=== PATIENT | male | born 1950 ===

== ENCOUNTER 2019-01-20 13:30 | Emergency (ER) | payer MEDICARE, MEDICAID ==
[2019-01-20 13:31] VITALS: PULSE 84
[2019-01-20 13:38] VITALS: BMI 32.4
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
[2019-01-20 14:24] LABS: URINE BACTERIA RARE (<OCC); URINE BILIRUBIN NEGATIVE (NEGATIVE); URINE BLOOD NEGATIVE (NEGATIVE); URINE CLARITY CLEAR (Clear); URINE COLOR STRAW (YELLOW); URINE GLUCOSE (UA) NEG (NEGATIVE); URINE LEUKOCYTE ESTERASE NEG Leu/uL (Negative); URINE PROTEIN NEGATIVE (NEGATIVE); URINE UROBILINOGEN 0.2-1.0 mg/dL (0.2-1.0)
[2019-01-20 14:40] LABS: BARBITURATES, UR NEGATIVE (NEGATIVE); BENZODIAZEPINES, UR NEGATIVE (NEGATIVE); OPIATES, UR NEGATIVE (NEGATIVE); PHENCYCLIDINE, UR NEGATIVE (NEGATIVE)
--- NOTE | 2019-01-20 16:48 | RAD ---
Date of service: 01/20/2019 HISTORY: ADMISSION COMPARISON: No prior. FINDINGS: LUNGS: No active pulmonary disease. PLEURA: No significant pleural effusion identified, no pneumothorax apparent. CARDIOVASCULAR: No aortic atherosclerotic calcification present. Normal cardiac size. No pulmonary vascular congestion. OSSEOUS STRUCTURES: No significant abnormalities. VISUALIZED UPPER ABDOMEN: Normal. OTHER FINDINGS: None. IMPRESSION: No active disease.
[2019-01-20 17:32] LABS: BASO # 0.1 K/uL (0.0-0.2); BASO % 0.6 % (0.0-2.0); EOS # 0.2 K/uL (0.0-0.7); EOS % 1.5 % (0.0-4.0); HEMOGLOBIN 17.4 g/dL (12.0-18.0); LYMPH # 1.8 K/uL (1.0-4.3); LYMPH % 17.9 % (20.0-40.0); MEAN CELL VOLUME 88.9 fl (80.0-94.0); MEAN CORPUSCULAR HEMOGLOBIN 29.4 pg (27.0-31.0); MEAN CORPUSCULAR HGB CONC 33.1 g/dL (33.0-37.0); MEAN PLATELET VOLUME 10.8 fl (7.2-11.7); MONO # 0.9 K/uL (0.0-0.8); MONO % 8.7 % (0.0-10.0); NEUT % 71.3 % (50.0-75.0); NRBC % 0.1 % (0.0-0.0); RBC 5.92 Mil/uL (4.40-5.90); RED CELL DISTRIBUTION WIDTH 15.6 % (11.5-14.5); WHITE BLOOD COUNT 9.8 K/uL (4.8-10.8)
[2019-01-20 17:51] LABS: ALB/GLOB RATIO 1.2 (1.0-2.1); ALBUMIN 4.6 g/dL (3.5-5.0); ALT/SGPT 39 U/L (21-72); AST/SGOT 52 U/L (17-59); BLOOD UREA NITROGEN 19 mg/dl (9-20); CALCIUM 9.2 mg/dL (8.4-10.2); GFR NON-AFRICAN AMERICAN > 60
[2019-01-20 22:05] VITALS: TEMP 98.2; O2SAT 96
--- NOTE | 2019-01-21 01:19 | ED PDOC ---
- Laboratory Results Result Diagrams: 01/20/19 17:23 01/20/19 17:23 Lab Results: Troponin I 0.0260 ng/mL (0.00-0.120) 01/20/19 17:59 Total Bilirubin 0.4 mg/dl (0.2-1.3) 01/20/19 17:23 AST 52 U/L (17-59) 01/20/19 17:23 ALT 39 U/L (21-72) 01/20/19 17:23 Alkaline Phosphatase 88 U/L (38-126) 01/20/19 17:23 Total Protein 8.5 G/DL (6.3-8.2) H 01/20/19 17:23 Albumin 4.6 g/dL (3.5-5.0) 01/20/19 17:23 Globulin 3.9 gm/dL (2.2-3.9) 01/20/19 17:23 Albumin/Globulin Ratio 1.2 (1.0-2.1) 01/20/19 17:23 Urine Color Straw (YELLOW) 01/20/19 14:02 Urine Clarity Clear (Clear) 01/20/19 14:02 Urine pH 7.0 (5.0-8.0) 01/20/19 14:02 Ur Specific [place] 1.006 (1.003-1.030) 01/20/19 14:02 Urine Protein Negative mg/dL (NEGATIVE) 01/20/19 14:02 Urine Glucose (UA) Neg mg/dL (NEGATIVE) 01/20/19 14:02 Urine Ketones Negative mg/dL (NEGATIVE) 01/20/19 14:02 Urine Blood Negative (NEGATIVE) 01/20/19 14:02 Urine Nitrate Negative (NEGATIVE) 01/20/19 14:02 Urine Bilirubin Negative (NEGATIVE) 01/20/19 14:02 Urine Urobilinogen 0.2-1.0 mg/dL (0.2-1.0) 01/20/19 14:02 Ur Leukocyte Esterase Neg Christine/uL (Negative) 01/20/19 14:02 Urine Bacteria Rare (<OCC) 01/20/19 14:02 - ECG O2 Sat by Pulse Oximetry: 96 - Progress ED Course And Treament: Case endorsed to customs entry writer from Shane LINDSEY pending [facility] eval 1:20 Patient evaluated by [facility] screener; does not meet criteria for commitment as per Dr. Coulter Disposition - Clinical Impression Clinical Impression: Schizophrenia - POA Present On Arrival: None - Disposition Disposition: Other Institution ([facility]) Disposition Time: 01:22 Condition: STABLE Instructions: Schizophrenia
[2019-01-21 02:14] VITALS: BP 126/58; PULSE 72; RESP 17
--- NOTE | 2019-01-21 08:55 | CARD ---
APPROVED REPORT Date of service: 01/20/2019 EKG Measurement Heart [id number] <Conclusion> Sinus rhythm with premature atrial complexes Left axis deviation Septal infarct, age undetermined Abnormal ECG
== END 2019-01-21 03:25 ==
LOC: H.ER 13:30
DX: F20.9 Schizophrenia, unspecified (principal); Z00.8 Encounter for other general examination; G89.29 Other chronic pain; J44.9 Chronic obstructive pulmonary disease, unspecified; N18.9 Chronic kidney disease, unspecified; Z88.0 Allergy status to penicillin; Z86.59 Personal history of other mental and behavioral disorders
CPT/HCPCS: 71045; 80053; 80164; 81003; 84443; 84484; 85025; 87086; 93005; 99285; G0480